=== PATIENT | male | born 1960 | race American Indian/Alaskan Native ===

== ENCOUNTER 2019-01-09 17:45 | Emergency (ER) | payer OTHER ==
[2019-01-09 18:06] VITALS: BP 145/94
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
== END 2019-01-10 00:20 | disposition home or self-care (01) ==
LOC: ED 17:45
DX: J40 Bronchitis, not specified as acute or chronic (principal); M25.551 Pain in right hip; J30.2 Other seasonal allergic rhinitis; F17.200 Nicotine dependence, unspecified, uncomplicated